=== PATIENT | female | born 1950 | race Caucasian/White ===

== ENCOUNTER → 2021-04-09 | Outpatient (CLI) | payer OTHER, BC ==
[~2021-04-09] MED LIST: COQ-10100 MG PO; LIPITOR 10 MG10 M1 PO; PRINIVIL20 M1 PO; PROZAC10 M1 PO
== END ==
LOC: LAB 11:26
PROVIDERS: ATTEND Student in an Organized Health Care Education/Training Program
DX: Z01.812 Encounter for preprocedural laboratory examination (principal); Z20.822 Contact with and (suspected) exposure to COVID-19

== ENCOUNTER → 2021-04-11 | Outpatient (CLI) | payer OTHER, BC ==
[~2021-04-11] VITALS: Ht 167.6 cm; Wt 90.7 kg
--- NOTE | 2021-04-13 10:40 | P ---
[facility] [place] [address] PROCEDURE REPORT Name: ALEJANDRA UPTON Room #: [facility]#: [id number] Admission: 04/11/21 Attend Phys: Jason Banks Discharge: Date of : 48 Report #: [id number] THIS REPORT FOR: cc: Jennifer Griffiths MD,Jason Black MD, MD ~ cc: eJnnifer Griffiths MD DATE OF SERVICE: 04/11/2021 PROCEDURE PERFORMED: Colonoscopy with polypectomy. HISTORY OF PRESENT ILLNESS: The patient is a 71-year-old female with a history of colon polyps, last colonoscopy approximately 5-6 years ago. She denies any symptoms, no family history of colon cancer. DESCRIPTION OF PROCEDURE: The risks and benefits of the procedure were explained to the patient, those risks including but not limited to bleeding, perforation and the risk of sedation. She understood these risks and gave informed consent. Sedation was given using propofol per anesthesia. Next, a digital rectal exam was initially performed, which was normal. Next, using a standard Olympus colonoscope, the scope was placed in the patient's anus and advanced under direct vision to the cecum. The overall prep was good. The cecum and ileocecal valve were normal in appearance. In the ascending colon, a 7 mm sessile polyp was noted. This was removed by snare cautery, otherwise normal. The transverse colon was normal. Multiple diverticula were noted in the descending and sigmoid colon. No evidence of inflammation. The rectal mucosa was normal. On retroflexion, small nonbleeding internal hemorrhoids were noted. The scope was then withdrawn and the procedure terminated. The patient tolerated the procedure well. IMPRESSION: 1. Ascending colon polyp. 2. Sigmoid left-sided diverticulosis. 3. Small internal hemorrhoids. 4. Otherwise, normal colonoscopy. RECOMMENDATIONS: 1. Await biopsy results. 2. If polyp is hyperplastic, repeat in 10 years; if adenomatous polyp, repeat in [address] [address] PROCEDURE REPORT Name: WONALEJANDRA [facility] [id number] Admission: 04/11/21 Attend Phys: Jason Banks Discharge: Date of : 48 Report #: [id number] Thank you for allowing me to participate in her care. <ELECTRONICALLY SIGNED> By: Jason Woodward MD 04/13/21 1040 1128 [id number] Jason Woodward MD /nt
--- NOTE | 2021-04-17 10:07 | PATH ---
[facility] [address] [place] [address] PATHOLOGY RPT PROCEDURE Name: ALEJANDRA FERREIRA Room #: [facility].#: [id number] Admission: 04/11/21 Date of : 48 Discharge: Report #: [id number] Path Case #: [id number] [facility] Accession Number: [id number] . 01 Material submitted: . colon - ASCENDING COLON/DIVERTICULITIS. Modifiers: ascending . 01 Clinical history: . COLONOSCOPY HX OF POLYP . 01 Diagnosis: Colonic mucosa "ascending colon biopsy": - Tubular adenoma. - There is no evidence of high-grade dysplasia or malignancy. (SHA:pit; 04/13/2021) QTP 04/13/2021 1030 Local . 01 Electronically signed: . Davy Reed MD, Pathologist NPI- [id number] . 01 Gross description: . The specimen is received in formalin, labeled "Francis Ferreiraa, ascending colon" and consists of a bejarano irregular polypoid tissue measuring 0.6 x 0.6 x 0.5 cm. The specimen is serially sectioned and submitted entirely in A1.([place]; 04/12/2021) DKA/DKA 04/12/2021 1101 Local . 01 Pathologist provided ICD-10: D12.2 . 01 CPT . 228839 Specimen Comment: A courtesy copy of this report has been sent to [phone] Specimen Comment: [phone] Specimen Comment: Report sent to / DR PEREZ Specimen Comment: A duplicate report has been generated due to demographic updates. Performed at: [address], [place] [id number] MD Davy Reed MD Phone: [phone]
== END | disposition home or self-care (01) ==
LOC: GI
PROVIDERS: ATTEND Specialist
DX: Z12.11 Encounter for screening for malignant neoplasm of colon (principal); Z86.010 Personal history of colon polyps; D12.2 Benign neoplasm of ascending colon; K57.30 Diverticulosis of large intestine without perforation or abscess without bleeding; K64.8 Other hemorrhoids; Z98.890 Other specified postprocedural states; Z79.899 Other long term (current) drug therapy; Z88.8 Allergy status to other drugs, medicaments and biological substances; Z88.2 Allergy status to sulfonamides
CPT/HCPCS: 62110; 62900